=== PATIENT | male | born 1955 | race Caucasian/White ===

== ENCOUNTER → 2019-11-12 09:03 | Outpatient (CLI) | payer MEDICARE, OTHER, SELFPAY ==
[2019-11-13 08:57] LABS: COVID19 Sendout Not Detected (Not Detect)
== END ==
PROVIDERS: Visit Provider Physician Assistant
DX: Z11.59 Encounter for screening for other viral diseases (principal)
CPT/HCPCS: 87635

== ENCOUNTER → 2020-06-09 12:19 | Outpatient (CLI) | payer MEDICARE, OTHER, SELFPAY ==
[2020-06-09 12:52] LABS: Add Manual Diff / Slide Review NO; Basophils Absolute Auto 0 /uL (0-100); Basophils Percent Auto 0.6 % (0-2); Eosinophils Absolute Auto 100 /uL (0-450); Eosinophils Percent Auto 2.6 % (2-4); Hemoglobin 14.5 g/dL (13.5-17.5); Lymphocytes Absolute Auto 1600 /uL (1100-4500); Lymphocytes Percent Auto 36.8 % (25-40); Mean Corpuscular HGB Conc 33.6 % (30-36); Mean Corpuscular Volume 95.1 fL (80-100); Monocytes Absolute Auto 300 /uL (0-900); Monocytes Percent Auto 6.5 % (3-14); Neutrophils Absolute Auto 2300 /uL (1500-7000); Neutrophils Percent Auto 53.5 % (50-75); Platelet Count 232 X10^3/uL (150-400); Red Blood Cell Count 4.52 X10^6/uL (4.5-5.9); Red Cell Distribution Width 13.1 % (11.6-14.8); White Blood Cell Count 4.4 X10^3/uL (4.5-11.0)
[2020-06-09 13:00] LABS: Alanine Aminotransferase 17 IU/L (<50); Albumin 4.1 g/dL (3.5-5.0); Albumin Globulin Ratio 1.5 (1.0-2.8); Alkaline Phosphatase 57 U/L (38-126); Aspartate Aminotransferase 31 IU/L (17-59); BUN Creatinine Ratio 22.6 (6-22); Blood Urea Nitrogen 21 mg/dL (9-20); Carbon Dioxide 28 mmol/L (22-32); Chloride 105 mmol/L (98-107); Cholesterol 169 mg/dL (140-199); Estimated Glomerular Filt Rate > 60.0 mL/min (>60); Globulin 2.8 g/dL (1.7-4.1); Glucose 92 mg/dL (80-110); HDL Cholesterol 49 mg/dL (40-60); HEMOLYSIS < 15 (0-50); LDL Cholesterol Calculated 109 mg/dL (<100); Potassium 4.2 mmol/L (3.4-5.1); Sodium 136 mmol/L (137-145); Total Protein 6.9 g/dL (6.3-8.2); Triglycerides 54 mg/dL (35-150)
[2020-06-09 13:31] LABS: Prostate Specific Antigen Scrn 1.29 ng/mL (0.1-4.0)
[2020-06-15 07:41] LABS: Percent Free Testosterone 3.43 % (1.50-4.20); Testosterone Free 10.28 ng/dL (5.00-21.00); Testosterone Total 299.6 ng/dL (264.0-916.0)
== END ==
PROVIDERS: PCP Family Medicine; Referring Provider Family Medicine; Visit Provider Family Medicine
DX: E29.1 Testicular hypofunction (principal); E03.9 Hypothyroidism, unspecified; Z12.5 Encounter for screening for malignant neoplasm of prostate
CPT/HCPCS: 36415; 80053; 80061; 84402; 84403; 84443; 85025; G0103

== ENCOUNTER → 2020-07-19 08:07 | Outpatient (CLI) | payer MEDICARE, OTHER, SELFPAY ==
--- NOTE | 2020-07-19 14:29 | PM.TREADMILL ---
Cardiac Stress Test Report Referral & Results Date Patient Seen: 07/19/20 Requesting provider: Bam Miranda Indication: Abnormal ECG Rest ECG: Nonspecific interventricular conduction delay Procedure Note: Today following both written and verbal informed consent the patient was exercised according to a standard Wojciech protocol patient went for a total of 13 minutes achieving a maximum heart rate of 142 maximum systolic blood pressure of 180. This is approximately 14.8 METS. Exercise was terminated at this point because of targets were met. Patient was also given Cardiolite through a previously started Hep-Lock IV by the diagnostic imaging staff approximately 1 minute prior to the cessation of exercise. There are no ST-T segment changes Rare PVCs and even more rare PACs identified Function aerobic impairment way way way off the scale estimate at -160% or an exercise capacity equal to that of an active 34-year-old male Normal heart rate and blood pressure response to exercise Impression: No ECG evidence of ischemia Amazing exercise capacity Please see perfusion imaging report as well Please note: Actual ECG tracings can be found in the PACS system.
--- NOTE | 2020-07-19 20:05 | DI.NM.S_ITS ---
DATE OF SERVICE: 07/19/2020 PROCEDURE PERFORMED: Exercise treadmill stress and rest myocardial perfusion imaging with gating to assess ejection fraction and regional wall motion. ORDERING PROVIDER: Dr. Bam Miranda. INDICATIONS: The patient is a 65-year-old male with an abnormal ECG and palpitations. CARDIAC STRESS: The patient was able to exercise for 13 minutes on a standard Wojciech protocol suggesting excellent exercise capacity with an THOMAS of -62% He had a normal heart rate and blood pressure response, achieving a maximum heart rate of 142 BPM (92% of his predicted maximum). He had no chest discomfort. His resting ECG is normal and there are no ischemic changes with stress. He had a rare isolated PVC with exercise with occasional PVCs and PACs in recovery, but no complex sustained arrhythmias. At 12 minutes of exercise at heart rate of 128 BPM, 25.4 millicuries of technetium-99m Myoview was injected and he was imaged 15 minutes later using a gated SPECT acquisition protocol. Earlier in the day while at rest, he was injected with 9.4 millicuries of technetium-99m Myoview and was imaged 30 minutes later, again using a gated SPECT protocol. FINDINGS: 1. Raw data: Left ventricular tracer uptake appears to be fairly good. Lung/heart ratio was normal at 0.36 with a normal TID ratio of 0.95. 2. Quantitated gated SPECT: Post stress ejection fraction is calculated at 58%, although visually appears to be slightly less, likely in the 50-55% range, but without any focal wall motion abnormality. Resting ejection fraction is calculated at 59% and visually appears unchanged from the post-stress ejection fraction.Resting end-diastolic volume is mildly increased at 165 mL. 3. Myocardial perfusion imaging: Post-stress supine images shows a fairly normal myocardial perfusion pattern without any concerning perfusion defects, supported by normal perfusion imaging in the prone position. The resting images show no evidence for any significant improvement. IMPRESSION: 1. Normal myocardial perfusion study for ischemia. 2. No evidence of myocardial ischemia or previous myocardial infarction. 3. Low-normal left ventricular systolic function without any focal wall motion abnormality, although mildly increased left ventricular volumes. 4. Excellent exercise capacity without angina or ECG evidence of ischemia. He had occasional PACs and PVCs, particularly in recovery, but no concerning arrhythmias. Isidro Munoz - YARI/shane/carlos doc#: [id number]/job#: [id number] dd: 07/19/2020 17:01:00 dt: 07/19/2020 18:24:00 DICTATING MD/COPIES TO: Herb Otero MD; Bam Miranda, ISSA MNE: VICKY;
== END ==
PROVIDERS: PCP Family Medicine; Referring Provider Family Medicine; Visit Provider Family Medicine
DX: I45.9 Conduction disorder, unspecified (principal); R94.31 Abnormal electrocardiogram [ECG] [EKG]; Z20.822 Contact with and (suspected) exposure to COVID-19
CPT/HCPCS: 78452; 87635; 93016; 93017; 93018; A9502

== ENCOUNTER → 2020-07-19 09:15 | Outpatient (CLI) | payer MEDICARE, OTHER, SELFPAY ==
[2020-07-19 09:35] LABS: COVID19 -Nasal RAPID Negative (Negative)
== END ==
PROVIDERS: PCP Family Medicine; Visit Provider Family Medicine
DX: Z20.822 Contact with and (suspected) exposure to COVID-19 (principal)
CPT/HCPCS: 87635

== ENCOUNTER 2020-12-23 16:45 | Emergency (ER) | payer MEDICARE, OTHER, SELFPAY ==
[2020-12-23 16:48] VITALS: BP 139/82; PULSE 60; RESP 16; TEMP 36.5; O2SAT 96; BMI 24.6
--- NOTE | 2020-12-23 16:54 | DI.US.S_ITS ---
PROCEDURE: US PERIPH VENOUS LOW EXTREM LT INDICATIONS: redness/swelling Lft calf TECHNIQUE: Real-time imaging, as well as color and pulse Doppler interrogation, were performed of the lower extremity deep veins from the inguinal ligament to the popliteal fossa. COMPARISON: None. FINDINGS: The common femoral, femoral and popliteal veins are normally compressible, and free of intraluminal thrombus. Color and pulse Doppler demonstrate normal phasic intraluminal flow. There is normal augmentation response to distal compression maneuver. There is a superficial dilated and thrombosed varicosity along the medial aspect of the left knee that measures 3.8 x 1.9 x 3.6 cm. Thrombosed varicosities are also seen within the greater saphenous vein along the medial left mid calf. IMPRESSION: Negative for deep venous thrombosis. Areas of superficial venous thrombosis can be seen. Dictated by: Avni Catalan M.D. on 12/23/2020 at 16:56 Approved by: Avni Catalan M.D. on 12/23/2020 at 16:56
--- NOTE | 2020-12-23 18:23 | ED.LOWEXIN ---
HPI - Extremity Injury (Lower) <Jordy Lee PA-C - Last Filed: 12/23/20 19:43> General Chief Complaint: Extremity Injury, Lower Stated Complaint: Swelling/Soreness in Lt Calf, R/O DVT Time Seen by Provider: 12/23/20 18:07 History of Present Illness HPI Narrative: Patient is a 65-year-old male presenting to the emergency department today for evaluation of left lower extremity swelling. Patient states that he noticed swelling in his left lower extremity approximately 8 days ago, but he states that his experience more redness in his calf and the pain has become more noticeable while running. Of note the patient denies recent travel, known trauma, or insect bites. Additionally, patient is not anticoagulated daily. He notes that his pain is isolated to 1 spot on his calf that he says feels like a ?swollen vein. Patient denies fever, chills, cough, shortness of breath, chest pain, abdominal pain, nausea, vomiting, diarrhea, or numbness and tingling in the bilateral lower extremities. No other concerns voiced at this time. Related Data Home Medications Medication Instructions Recorded Confirmed aspirin 81 mg tablet,delayed 81 mg PO DAILY 05/26/20 06/30/20 release Previous Rx's Medication Instructions Recorded sildenafil 25 mg tablet 25 mg PO DAILY PRN #30 tab 06/30/20 levothyroxine 88 mcg tablet See Rx Instructions .ROUTE 09/29/20 .COMPLEX #90 tab Allergies Allergy/AdvReac Type Severity Reaction Status Date / Time No Known Drug Allergies Allergy Unverified 06/30/20 09:01 Review of Systems <Jordy Lee PA-C - Last Filed: 12/23/20 19:43> Constitutional Constitutional: Denies chills, Denies fever(s), Denies frequent falls, Denies lethargy and Denies weakness ENT Ears, Nose, Mouth, and Throat: Denies dizziness Cardiovascular Cardiovascular: Denies chest pain, Denies irregular heart rhythm, Denies lightheadedness, Denies palpitations, Denies dyspnea, Denies dyspnea on exertion and Denies orthopnea Respiratory Respiratory: Denies cough, Denies dyspnea, Denies dyspnea on exertion and Denies wheezing Gastrointestinal Gastrointestinal: Denies abdominal pain, Denies change in bowel habits, Denies diarrhea, Denies nausea and Denies vomiting Musculoskeletal Musculoskeletal: Denies joint swelling, Denies numbness and Denies tingling Integumentary/Breasts Skin/Breast: Denies pruritus, Reports erythema, Denies rash, Reports skin swelling and Denies wounds Neurologic Neurologic: Denies behavioral changes, Denies confusion, Denies dizziness, Denies frequent falls, Denies numbness, Denies tingling and Denies weakness Psychiatric Psychiatric: Denies behavioral changes and Denies confusion Endocrine Endocrine: Denies palpitations Hematologic/Lymphatic Hematologic/Lymphatic: Denies easy bruising Allergic/Immunologic Allergic/Immunologic: Denies wheezing Patient History <Jordy Lee PA-C - Last Filed: 12/23/20 19:43> Medical History Cardiac arrhythmia Elevated bilirubin Hyperlipidemia Hypogonadism in male Hypothyroidism Measles Mumps Plantar fasciitis (~2019) Tuberculosis (~1978) Wears glasses Welcome to Medicare preventive visit Surgical History Anesthesia History of hernia repair (~2015) Family History Grandfather History of heart disease Social History Smoking Status: Never smoker Smoking Status: Never smoker Exam <Jordy Lee PA-C - Last Filed: 12/23/20 19:43> Narrative Exam Narrative: GENERAL: 65 year old patient appears stated age. Well-developed patient, in no acutedistress. HEAD: Atraumatic. Normocephalic. EYES: Pupils equal round and reactive. Extraocular motions intact. No scleral icterus. No injection or drainage. ENT: Nose without bleeding, purulent drainage. Throat without erythema, tonsillar hypertrophy or exudate. Airway patent. NECK: Trachea midline. Non tender CARDIOVASCULAR: Regular rate and rhythm without murmurs, gallops, or rubs. RESPIRATORY: Clear to auscultation. Breath sounds equal bilaterally. No wheezes, rales, or rhonchi. GASTROINTESTINAL: Abdomen soft, non-tender, nondistended. EXTREMITIES: No edema or joint tenderness. Varicose veins noted throughout the bilateral lower extremities. Negative Homans sign. BACK: Nontender without deformity or crepitance. No flank tenderness. NEURO: AOx3. SKIN: No rash or wounds in visible areas. Swelling and erythema along the medial aspect of the left leg with approximately 8 cm of induration with mild tenderness to palpation noted. Initial Vital Signs Initial Vital Signs: Vital Signs Temperature 97.7 F 12/23/20 16:48 Pulse Rate 60 12/23/20 16:48 Respiratory Rate 16 12/23/20 16:48 Blood Pressure 139/82 12/23/20 16:48 Pulse Oximetry 96 12/23/20 16:48 Cardio Pulses: dorsalis pedis present bilaterally <Antelmo Garcia DO - Last Filed: 12/24/20 01:52> Initial Vital Signs Initial Vital Signs: Vital Signs Temperature 97.7 F 12/23/20 16:48 Pulse Rate 60 12/23/20 16:48 Respiratory Rate 16 12/23/20 16:48 Blood Pressure 139/82 12/23/20 16:48 Pulse Oximetry 96 12/23/20 16:48 Course <Jordy Lee PA-C - Last Filed: 12/23/20 19:43> Course Course Narrative: Left lower extremity ultrasound ordered. Warm compress applied to the painful area. Orders Ordered: ED Orders 12/23/20 16:54 US periph venous low extrem lt Stat Vital Signs Vital signs: Vital Signs - 8 hr 12/23/20 19:09 Pulse Rate 54 L Blood Pressure 131/86 Pulse Oximetry 99 <Antelmo Garcia DO - Last Filed: 12/24/20 01:52> Orders Ordered: ED Orders 12/23/20 16:54 US periph venous low extrem lt Stat Vital Signs Vital signs: Vital Signs - 8 hr 12/23/20 19:09 Pulse Rate 54 L Blood Pressure 131/86 Pulse Oximetry 99 MDM - Extremity Injury (Lower) <GAVIN Mendoza Last Filed: 12/23/20 19:43> Imaging Data US - DVT: Radiologist's Impression: PROCEDURE:? US PERIPH VENOUS LOW EXTREM LT ? INDICATIONS:? redness/swelling Lft calf ? TECHNIQUE:? Real-time imaging, as well as color and pulse Doppler interrogation, were performed of the lower extremity deep veins from the inguinal ligament to the popliteal fossa.? ? COMPARISON:? None. ? FINDINGS:? The common femoral, femoral and popliteal veins are normally compressible, and free of intraluminal thrombus.? Color and pulse Doppler demonstrate normal phasic intraluminal flow.? There is normal augmentation response to distal compression maneuver. ? ? There is a superficial dilated and thrombosed varicosity along the medial aspect of the left knee that measures 3.8 x 1.9 x 3.6 cm.? Thrombosed varicosities are also seen within the greater saphenous vein along the medial left mid calf.? IMPRESSION:? ? Negative for deep venous thrombosis. ? Areas of superficial venous thrombosis can be seen. ? ? Dictated by: Avni Catalan M.D. on 12/23/2020 at 16:56 ? ? Approved by: Avni Catalan M.D. on 12/23/2020 at 16:56 MDM Narrative Medical decision making narrative: Patient is a 65-year-old male presenting to the emergency department today for evaluation of left lower extremity swelling. To consider DVT versus superficial thrombophlebitis versus superficial venous thrombosis versus cellulitis versus insect bite versus contact irritant. Physical examination and history are overall reassuring. Patient denies known trauma or known recent insect bites. Additionally, the isolated area of tenderness with associated induration makes the diagnosis of superficial venous thrombosis more likely. Patient denies systemic symptoms such as fever or chills. Ultrasound obtained was negative for deep vein thrombosis, but did show areas of superficial venous thrombosis. Discussed with patient the results of ultrasound, and at this time he feels comfortable being discharged home. Strict return precautions were discussed with the patient prior to discharge. Discharge Plan Departure Patient Disposition: Home Clinical Impression: Acute superficial venous thrombosis of left lower extremity Instructions: Phlebitis/DVT (Alternative Therapy) Activity Restrictions/Additional Instructions: *You have been diagnosed with acute left superficial venous thrombosis *What to do: *Please continue to take your regular medications as directed. [ ] New medication prescriptions sent to your pharmacy: [ ] [ ] New medication written as a paper prescription [X] No new medications given *Please follow up with your primary care provider in the next 24-48 hours, call for an appointment. Let them know you were seen in the Emergency Department and that we ask that you be seen in follow up. We will electronically transmit a record of today's note if your PCP is in our system *If you do not have a primary care provider please contact the [facility] Resource line at [phone]. They will ask some questions about your medical history and help get you set up with a doctor in the community. *Return to Emergency Department if you should have any new, worsening or concerning symptoms, such as fever greater than 101 F, shaking chills, worsening leg pain, shortness of breath, chest pain, persistent vomiting, or other bothersome symptoms Prescriptions: No Action levothyroxine 88 mcg tablet See Rx Instructions .ROUTE .COMPLEX Qty: 90 RF: 0 aspirin 81 mg tablet,delayed release (DR/EC) 81 mg PO DAILY RF: 0 sildenafil 25 mg tablet 25 mg PO DAILY PRN (Reason: sexual activity) Qty: 30 RF: 0 Referrals: Bam Miranda MD [Primary Care Provider] - <Antelmo Garcia DO - Last Filed: 12/24/20 01:52> Cosign ED Attending Cosignature Attestation: I was immediately available in the department for consultation. This documentation has been reviewed and I agree with assessment and plan. Supervised by Antelmo Garcia DO
--- NOTE | 2020-12-23 18:32 | PC.NURSE ---
left lower calf pain, redness and swelling for approx one week. Denies SOB
--- NOTE | 2020-12-23 18:33 | PC.NURSE ---
warm compress applied to left calf
[2020-12-23 19:09] VITALS: BP 131/86; PULSE 54; O2SAT 99
== END 2020-12-23 19:10 | disposition home or self-care (01) ==
PROVIDERS: Emergency Provider Physician Assistant; PCP Family Medicine
DX: I82.812 Embolism and thrombosis of superficial veins of left lower extremity (principal)
CPT/HCPCS: 93971; 99283

== ENCOUNTER → 2022-02-07 07:59 | Outpatient (CLI) | payer MEDICARE, OTHER, SELFPAY ==
[2022-02-07 08:56] LABS: Add Manual Diff / Slide Review NO; Basophils Absolute Auto 0 /uL (0-100); Basophils Percent Auto 0.4 % (0-2); Eosinophils Absolute Auto 300 /uL (0-450); Eosinophils Percent Auto 5.7 % (2-4); Hematocrit 42.9 % (41-53); Hemoglobin 14.6 g/dL (13.5-17.5); Lymphocytes Absolute Auto 1900 /uL (1100-4500); Lymphocytes Percent Auto 39.4 % (25-40); Mean Corpuscular Hemoglobin 32.5 PG (26-34); Mean Corpuscular Volume 95.6 fL (80-100); Monocytes Absolute Auto 400 /uL (0-900); Neutrophils Absolute Auto 2200 /uL (1500-7000); Neutrophils Percent Auto 45.5 % (50-75); Platelet Count 238 X10^3/uL (150-400); Red Blood Cell Count 4.49 X10^6/uL (4.5-5.9); Red Cell Distribution Width 13.1 % (11.6-14.8); White Blood Cell Count 4.9 X10^3/uL (4.5-11.0)
[2022-02-07 09:04] LABS: Alanine Aminotransferase 17 IU/L (<50); Albumin Globulin Ratio 1.3 (1.0-2.8); Alkaline Phosphatase 60 U/L (38-126); Aspartate Aminotransferase 25 IU/L (17-59); BUN Creatinine Ratio 23.9 (6-22); Bilirubin Total 1.5 mg/dL (0.2-1.3); Blood Urea Nitrogen 22 mg/dL (9-20); Carbon Dioxide 27 mmol/L (22-32); Chloride 103 mmol/L (98-107); Cholesterol 191 mg/dL (140-199); Estimated Glomerular Filt Rate > 60 mL/min (>60); Globulin 3.1 g/dL (1.7-4.1); Glucose 89 mg/dL (80-110); HDL Cholesterol 56 mg/dL (40-60); HEMOLYSIS < 15 (0-50); LDL Cholesterol Calculated 121 mg/dL (<100); Potassium 4.7 mmol/L (3.4-5.1); Sodium 138 mmol/L (137-145); Total Protein 7.1 g/dL (6.3-8.2); Triglycerides 71 mg/dL (35-150)
[2022-02-07 09:26] LABS: TSH w/ Reflex to FT4 5.75 uIU/mL (0.47-4.68)
[2022-02-07 09:31] LABS: Prostate Specific Antigen Scrn 1.63 ng/mL (0.1-4.0)
[2022-02-07 09:52] LABS: Free T4, Direct Thyroxine 1.27 ng/dL (0.78-2.19)
== END ==
PROVIDERS: PCP Family Medicine; Referring Provider Family Medicine; Visit Provider Family Medicine
DX: E03.9 Hypothyroidism, unspecified (principal); Z12.5 Encounter for screening for malignant neoplasm of prostate; E29.1 Testicular hypofunction; E78.2 Mixed hyperlipidemia; R17 Unspecified jaundice
CPT/HCPCS: 36415; 80053; 80061; 84439; 84443; 85025; G0103

== ENCOUNTER → 2022-05-01 08:01 | Outpatient (CLI) | payer MEDICARE, OTHER, SELFPAY ==
[2022-05-02 11:10] LABS: Fecal Immunochemical Test NEGATIVE
[2022-05-15 17:08] LABS: Percent Free Testosterone 2.27 % (1.50-4.20); Testosterone Free 4.57 ng/dL (5.00-21.00); Testosterone Total 201.2 ng/dL (264.0-916.0)
== END ==
PROVIDERS: PCP Family Medicine; Referring Provider Family Medicine; Visit Provider Family Medicine
DX: E29.1 Testicular hypofunction (principal); Z12.11 Encounter for screening for malignant neoplasm of colon
CPT/HCPCS: 36415; 82274; 84402; 84403

== ENCOUNTER → 2022-12-15 09:22 | Outpatient (CLI) | payer MEDICARE, OTHER, SELFPAY ==
[2022-12-15 10:41] LABS: Add Manual Diff / Slide Review NO; Basophils Absolute Auto 0 /uL (0-100); Basophils Percent Auto 0.5 % (0-2); Eosinophils Absolute Auto 200 /uL (0-450); Eosinophils Percent Auto 4.1 % (2-4); Hemoglobin 14.5 g/dL (13.5-17.5); Lymphocytes Absolute Auto 1300 /uL (1100-4500); Lymphocytes Percent Auto 31.7 % (25-40); Mean Corpuscular HGB Conc 34.5 % (30-36); Mean Corpuscular Volume 95.6 fL (80-100); Monocytes Absolute Auto 400 /uL (0-900); Monocytes Percent Auto 8.7 % (3-14); Neutrophils Absolute Auto 2300 /uL (1500-7000); Platelet Count 242 X10^3/uL (150-400); Red Blood Cell Count 4.39 X10^6/uL (4.5-5.9); White Blood Cell Count 4.1 X10^3/uL (4.5-11.0)
[2022-12-15 10:53] LABS: Alanine Aminotransferase 22 IU/L (<50); Albumin 4.2 g/dL (3.5-5.0); Albumin Globulin Ratio 1.4 (1.0-2.8); Alkaline Phosphatase 51 U/L (38-126); Aspartate Aminotransferase 31 IU/L (17-59); BUN Creatinine Ratio 29.8 (6-22); Bilirubin Total 1.6 mg/dL (0.2-1.3); Blood Urea Nitrogen 25 mg/dL (9-20); Calcium 9.5 mg/dL (8.4-10.2); Carbon Dioxide 28 mmol/L (22-32); Chloride 103 mmol/L (98-107); Estimated Glomerular Filt Rate > 60 mL/min (>60); Globulin 3.1 g/dL (1.7-4.1); Glucose 98 mg/dL (80-110); HEMOLYSIS < 15 (0-50); Sodium 137 mmol/L (137-145); Total Protein 7.3 g/dL (6.3-8.2)
[2022-12-15 11:22] LABS: Prostate Specific Antigen Scrn 1.61 ng/mL (0.1-4.0)
[2022-12-22 20:35] LABS: Percent Free Testosterone 2.28 % (1.50-4.20); Testosterone Free 8.17 ng/dL (5.00-21.00); Testosterone Total 358.5 ng/dL (264.0-916.0)
== END ==
PROVIDERS: PCP Family Medicine; Referring Provider Family Medicine; Visit Provider Family Medicine
DX: E03.9 Hypothyroidism, unspecified (principal); Z12.5 Encounter for screening for malignant neoplasm of prostate; E29.1 Testicular hypofunction
CPT/HCPCS: 36415; 80053; 84402; 84403; 85025; G0103

== ENCOUNTER → 2023-11-06 07:27 | Outpatient (CLI) | payer MEDICARE, OTHER, SELFPAY ==
[2023-11-06 08:29] LABS: Add Manual Diff / Slide Review NO; Basophils Absolute Auto 0 /uL (0-100); Basophils Percent Auto 0.4 % (0-2); Eosinophils Absolute Auto 400 /uL (0-450); Eosinophils Percent Auto 7.3 % (2-4); Hemoglobin 14.3 g/dL (13.5-17.5); Lymphocytes Absolute Auto 1600 /uL (1100-4500); Lymphocytes Percent Auto 32.5 % (25-40); Mean Corpuscular Hemoglobin 32.9 PG (26-34); Mean Corpuscular Volume 96.6 fL (80-100); Monocytes Absolute Auto 500 /uL (0-900); Monocytes Percent Auto 9.4 % (3-14); Neutrophils Absolute Auto 2500 /uL (1500-7000); Neutrophils Percent Auto 50.4 % (50-75); Platelet Count 260 X10^3/uL (150-400); Red Blood Cell Count 4.35 X10^6/uL (4.5-5.9); Red Cell Distribution Width 12.8 % (11.6-14.8)
[2023-11-06 08:47] LABS: Alanine Aminotransferase 21 IU/L (<50); Albumin 3.9 g/dL (3.5-5.0); Albumin Globulin Ratio 1.4 (1.0-2.8); Alkaline Phosphatase 64 U/L (38-126); Aspartate Aminotransferase 32 IU/L (17-59); BUN Creatinine Ratio 28.1 (6-22); Bilirubin Total 1.1 mg/dL (0.2-1.3); Blood Urea Nitrogen 25 mg/dL (9-20); Calcium 9.4 mg/dL (8.4-10.2); Carbon Dioxide 27 mmol/L (22-32); Chloride 103 mmol/L (98-107); Cholesterol 175 mg/dL (140-199); Estimated Glomerular Filt Rate > 60 mL/min (>60); Globulin 2.8 g/dL (1.7-4.1); Glucose 92 mg/dL (80-110); HDL Cholesterol 54 mg/dL (40-60); HEMOLYSIS < 15 (0-50); LDL Cholesterol Calculated 108 mg/dL (<100); Sodium 136 mmol/L (137-145); Total Protein 6.7 g/dL (6.3-8.2); Triglycerides 64 mg/dL (35-150)
[2023-11-06 08:51] LABS: Potassium 5.5 mmol/L (3.4-5.1)
[2023-11-06 09:14] LABS: Prostate Specific Antigen Scrn 2.04 ng/mL (0.1-4.0)
[2023-11-06 09:15] LABS: TSH w/ Reflex to FT4 3.89 uIU/mL (0.47-4.68)
== END ==
PROVIDERS: PCP Family Medicine; Referring Provider Family Medicine; Visit Provider Family Medicine
DX: E78.2 Mixed hyperlipidemia (principal); Z12.5 Encounter for screening for malignant neoplasm of prostate; E03.9 Hypothyroidism, unspecified; E29.1 Testicular hypofunction; I49.9 Cardiac arrhythmia, unspecified; R17 Unspecified jaundice
CPT/HCPCS: 36415; 80053; 80061; 84443; 85025; G0103

== ENCOUNTER 2023-12-04 07:29 | Day surgery (SDC) | payer MEDICARE, OTHER, SELFPAY ==
[2023-12-04 08:25] VITALS: BP 147/84; PULSE 55; RESP 17; TEMP 36.4; O2SAT 98
--- NOTE | 2023-12-04 08:42 | P.HP_ITS ---
History of Present Illness History of Present Illness Date Patient Seen: 12/04/23 Time Patient Seen: 08:42 Chief complaint: Screening Colonoscopy Narrative: Isidro is a 68-year-old man who is here for a colonoscopy. He has never had one before. You did have a fit test in 2020 that was negative. Does not have any family history of colon cancer that he is aware of. [facility] Medical History (Updated 12/04/23 @ 08:43 by Nahum Rodriguez MD) Dupuytren contracture Varicose veins of bilateral lower extremities with other complications Welcome to Medicare preventive visit Elevated bilirubin Wears glasses Plantar fasciitis (~2019) Tuberculosis (~1978) Mumps Measles Cardiac arrhythmia Hypogonadism in male Hyperlipidemia Hypothyroidism Surgical History Anesthesia History of hernia repair (~2015) Family History Grandfather History of heart disease Social History Smoking Status: Never smoker alcohol intake: never Meds Home Medications and Allergies Home Medications Medication Instructions Recorded Confirmed Type levothyroxine 88 mcg tablet See Rx Instructions .Route 04/25/23 12/04/23 Rx .COMPLEX #90 tabs sodium,potassium,mag sulfates 17.5 See Rx Instructions PO .COMPLEX 10/18/23 Rx gram-3.13 gram-1.6 gram oral soln #354 mL (Suprep Bowel Prep Kit) sildenafil 50 mg tablet See Rx Instructions PO .COMPLEX 11/12/23 Rx PRN sexual activity #30 tabs Allergies Allergy/AdvReac Type Severity Reaction Status Date / Time No Known Drug Allergies Allergy Verified 12/04/23 08:28 Exam Vital Signs (past 8 hours): - 12/04/23 08:25 Temperature 97.5 F L Pulse Rate 55 L Respiratory Rate 17 Blood Pressure 147/84 H Pulse Oximetry 98 Oxygen Delivery Method Room Air Oxygen Delivery Method Room Air Const General: healthy appearing Resp Effort & Inspection: normal respiratory effort Assessment & Plan Assessment and plan (1) Colon cancer screening: Status: Acute Plan We reviewed the risks and benefits of colonoscopy for colon cancer screening and he would like to proceed. Time-Based Coding :: [TOTAL MINUTES] spent with patient and on the chart (including review of chart, obtaining history, exam, reviewing outside data, placing orders, documenting exam and treatment plan, and counseling patient) on [DATE].
--- NOTE | 2023-12-04 09:16 | P.OP.COLON_ITS ---
Operative Date/Time/Diagnoses Date of procedure: 12/04/23 Time of procedure: 09:16 Pre-op diagnosis: Colon cancer screening Post-op diagnosis: same Procedure & Clinicians Study performed: Colonoscopy Same procedure as scheduled: Yes Surgeon: Nahum Rodriguez Procedure Notes Procedure in detail: Surgeon: Nahum Rodriguez MD Anesthesia: Laure DAI Procedure: The patient was brought to the endoscopy suite, placed in left lateral decubitus position. The patient was connected to monitoring devices. A time-out was performed. Sedation was administered. Once the patient was adequately sedated, a digital rectal exam was performed and was normal. The scope was then inserted and advanced to the cecum where the appendiceal orifice was identified and photographed. The scope was then slowly withdrawn over greater than 6 minutes. The mucosa was thoroughly inspected. No polyps or othe r abnormalities were identified. The scope was retroflexed in the rectum. The scope was straightened and removed. The patient was awakened and brought to recovery. Scope withdrawal time: 7 minutes Sedation time: 15 minutes EBL: 0 Findings: Normal colon Post-procedure Recommendations: Colonoscopy in 10 years Disposition: PACU
[2023-12-04 09:20] VITALS: BP 113/76; PULSE 61; RESP 10; TEMP 36.3; O2SAT 98
[2023-12-04 09:25] VITALS: BP 118/83; PULSE 60; RESP 12; O2SAT 98
[2023-12-04 09:30] VITALS: BP 125/87; PULSE 57; RESP 19; O2SAT 97
[2023-12-04 09:35] VITALS: BP 123/85; PULSE 66; RESP 17; O2SAT 99
[2023-12-04 09:41] VITALS: BP 126/84; PULSE 60; RESP 19; O2SAT 100
== END 2023-12-04 09:45 | disposition home or self-care (01) ==
PROVIDERS: PCP Family Medicine; Referring Provider Surgery; Visit Provider Surgery
PROC: 0DJD8ZZ Inspection of Lower Intestinal Tract, Via Natural or Artificial Opening Endoscopic (ICD-10-PCS; CPT 45378; principal; 2023-12-04 08:45)
DX: Z12.11 Encounter for screening for malignant neoplasm of colon (principal)
CPT/HCPCS: G0121; J2704

== ENCOUNTER → 2024-01-23 08:31 | Outpatient (CLI) | payer MEDICARE, OTHER, SELFPAY ==
[2024-01-23 10:12] LABS: Alanine Aminotransferase 21 IU/L (<50); Albumin 4.2 g/dL (3.5-5.0); Albumin Globulin Ratio 1.7 (1.0-2.8); Alkaline Phosphatase 61 U/L (38-126); Aspartate Aminotransferase 33 IU/L (17-59); Bilirubin Total 1.2 mg/dL (0.2-1.3); Blood Urea Nitrogen 19 mg/dL (9-20); Calcium 9.4 mg/dL (8.4-10.2); Carbon Dioxide 28 mmol/L (22-32); Chloride 104 mmol/L (98-107); Estimated Glomerular Filt Rate > 60 mL/min (>60); Globulin 2.5 g/dL (1.7-4.1); Glucose 90 mg/dL (80-110); HEMOLYSIS < 15 (0-50); Potassium 4.8 mmol/L (3.4-5.1); Sodium 137 mmol/L (137-145); Total Protein 6.7 g/dL (6.3-8.2)
[2024-01-23 10:41] LABS: Prostate Specific Antigen 1.64 ng/mL (0.10-4.00)
[2024-01-27 12:07] LABS: Percent Free Testosterone 3.14 % (1.50-4.20); Testosterone Free 9.47 ng/dL (5.00-21.00); Testosterone Total 301.7 ng/dL (264.0-916.0)
== END ==
PROVIDERS: PCP Family Medicine; Referring Provider Family Medicine; Visit Provider Family Medicine
DX: R97.20 Elevated prostate specific antigen [PSA] (principal); E87.5 Hyperkalemia; E29.1 Testicular hypofunction
CPT/HCPCS: 36415; 80053; 84153; 84402; 84403

== ENCOUNTER → 2024-06-17 17:12 | Outpatient (CLI) | payer MEDICARE, OTHER, SELFPAY ==
--- NOTE | 2024-06-17 17:14 | DI.RAD.S_ITS ---
PROCEDURE: XR KNEE RT 3V INDICATIONS: right knee pain TECHNIQUE: 3 views of the knee were acquired. COMPARISON: None. FINDINGS: Bones: There are no osseous abnormalities. Joints: Severe patellofemoral and moderate medial tibial femoral degenerative change appreciated. Small loose body present in the medial tibial femoral joint. Small loose body seen in the medial tibial femoral joint. Mild lateral patellar subluxation Soft tissues: Normal IMPRESSION: Degeneration. Mild lateral patellar subluxation . Dictated by: Adi Curran M.D. on 06/18/2024 at 10:41 Approved by: Adi Curran M.D. on 06/18/2024 at 10:42
== END ==
LOC: RAD 17:13
PROVIDERS: PCP Family Medicine; Referring Provider Family Medicine; Visit Provider Family Medicine
DX: S83.011A Lateral subluxation of right patella, initial encounter (principal); M25.561 Pain in right knee
CPT/HCPCS: 73562

== ENCOUNTER → 2024-07-16 14:50 | Outpatient (CLI) | payer MEDICARE, OTHER, SELFPAY | PROVIDERS: PCP Family Medicine; Referring Provider Family Medicine; Visit Provider Family Medicine | DX: R00.2 Palpitations (principal); I49.9 Cardiac arrhythmia, unspecified | CPT/HCPCS: 93246; 93248 ==